=== PATIENT | male | born 1950 | race Caucasian/White ===

== ENCOUNTER → 2017-12-20 | Outpatient (CLI) | payer OTHER ==
--- NOTE | 2017-12-21 06:22 | PAP/PSG TECHNICIAN REPORT ---
[facility] [employer] Polysomnogram Report Study name: None Report date: 12/21/2017 Study date: 12/20/2017 Referring Physician: DR. LILY RENE Name: SHANTELL BAUM Interpreting Physician: Sanjiv Cunningham M.D. Date of : 1950 [employer]: Cristhian Pantoja RPSGT. Sex: Male Age: 67 StudyType: PSG Weight: Height: 67 years, Height BMI: Medications: LISINOPRIL 20 MG, METFORMIN HCL 1000 MG, RANITIDINE HCL 150 MG, SAXAGLIPTIN HCL 5 MG, SIMVASTATIN 80 MG, TAMSULOSIN HCL 0.4 MG Patient History PATIENT HAS HISTORY OF SNORING AND DAYTIME FATIGUE. HE IS HERE TODAY BECAUSE HE IS PREPARING FOR KNEE SURGERY. ESS = 5 RM 6 Parameters Monitored NPSG: E1-M2, E2-M1, Fp1-M2, Fp2-M1, F3-M2, F4-M2, F4-M1, C3-M2, C4-M2, C4-M1, O1-M2, O2-M2, O2-M1, T3-M2, T4-M1, P3-M2, P4-M1, CHIN1, CHIN2, HR, EKG, Legs, PFLOW, SNOR, FLOW, CFLOW, Tidal Volume, THOR, ABDO, SpO2, PLTH, CPRESS, ETCO2 Wave, ETCO2, pH Sleep Architecture Sleep Stages Time at Lights Off 10:15:40 PM STAGES Time (min.) TST (%) Time at Lights On 4:54:40 AM Wake 99.0 -- Total Recording Time (TRT) 399.50 min. N1 29.5 10 Total Sleep Period (TSP) 352.0 min. N2 199.0 66 Total Sleep Time (TST) 300.0min. N3 0.0 0 Awake Time 99.5 min. REM 71.5 24 Wake after Sleep Onset 60.5 min. Sleep Efficiency (SE) 75 % Sleep Onset Latency (YANDY) 38.5 min. Number of Stage 1 Shifts None Awakenings 15 Stage Changes 55 Number of REM periods 2 REM 71.5 24 REM Latency 187.0 min. NREM 228.5 76 Body Position Analysis Supine Right Left Side Prone Vertical Total Sleep Time (min.) 152.9 105.0 105.7 210.70 0.0 0.0 Total Sleep Time (%) 30% 35% 35% 70 0% N/A% Total Sleep Time REM (min.) 30.0 41.5 0.0 None 0.0 0.0 Total Sleep Time NREM (min.) 59.3 63.5 105.7 None 0.0 0.0 Intermittent Wake (min.) 63.6 11.7 23.7 None 0.0 0.0 Total Sleep Period (%) 33% None None None None None Arousals Myoclonus (PLM) * Events Count Index Events Count Index Spontaneous 18 4 Events Awake (PLMW) 106 64.2 Respiratory 36 7.2 Events Asleep w/ Arousal (PLMA) 16 3.2 PLM 14 3 Events Asleep w/o Arousal (PLMS) 114 22.8 Snoring 23 5 Total Asleep 130 26.0 Total 88 18 Total 236 35 Respiratory Analysis * CA OA MA CH H RERA Total Count 0 32 0 0 117 0 149 Index 0.0 6.4 0.0 0 23.4 0 29.8 Mean Duration 0.0 25.2 0.0 0.00 22.6 0.0 23.2 Longest Duration 0.0 50.5 0.0 0.00 0.0 0.0 50.5 Respiratory Event Summary Total Supine ~Supine Right Left Prone REM NREM Apneas Count 32 28 4 2 2 N/A 12 20 Index 6.4 19 1 1.1 1.1 N/A 10 5 Hypopneas (4% Desat) Count 117 76 41 24 17 N/A 51 66 Index 23.4 51.1 12 13.7 9.7 N/A 42.8 17.3 Apneas & All Hypopneas Count 149 104 45 26 19 N/A 63 86 Index 29.8 70 13 15 11 N/A 52.9 22.6 Respiratory Events (Roving Marker+All Hyp+RERA) Count 149 104 45 26 19 N/A 63 86 Index 29.8 70 13 14.9 10.8 N/A 52.9 22.6 Respiratory Related Arousal Count 36 104 5 0 5 N/A 12 24 Index 7.2 21 1 0 3 N/A 10 6 Snoring Analysis Supine Right Left Prone REM NREM Total Snore duration 66.0 min Snores count 577 1,340 725 N/A 778 1,864 2,642 Snore mean duration 1.5 Sec Snores index 388 766 412 N/A 652.9 489.5 528.4 TST with snoring (%) 22.0% Desaturation Event Summary: Minimum %SpO2 Event Count Mean/Min/Max Duration(sec.) Desaturation Index % Time In Bed > 90 153 26.9 / 5.8 / 60.0 27.1 87.8 86 - 90 21 25.0 / 4.5 / 51.5 31.4 10.4 81 - 85 2 6.4 / 5.8 / 7.0 23.5 1.3 76 - 80 1 7.0 / 7.0 / 7.0 43.6 0.4 71 - 75 0 N/A 0.0 0.1 66 - 70 0 N/A 0.0 0.0 61 - 65 0 N/A 0.0 0.0 56 - 60 0 N/A 0.0 0.0 51 - 55 0 N/A 0.0 0.0 < 50 0 N/A 0.0 0.0 Total REM NREM Awake <50% 0.0 min. 0.0 min. 0.0 min. 0.0 min. 51 - 60% 0.0 min. 0.0 min. 0.0 min. 0.0 min. 61 - 70% 0.0 min. 0.0 min. 0.0 min. 0.0 min. 71 - 80% 1.9 min. 1.6 min. 0.2 min. 0.1 min. 81 - 90% 45.2 min. 30.5 min. 12.2 min. 2.4 min. 91 - 100% 339.2 min. 39.4 min. 213.4 min. 86.4 min. Average 93 91 93 94 Minimum SpO2 71 71 75 71 Desaturation Event Index 24.7 52.9 23.6 7.9 # Desat. Events below 89% 62 50 7 5 Time(%) with Saturation below 89% 5.6 4.9 0.5 0.2 Time(min.) with Saturation below 89% 21.7 18.8 2.0 0.9 Time (mins) REM (mins) NREM (mins) % of TST SpO2 Below 90% 88 54 N34 9.6 SpO2 Below 88% 30 0 0 5 Heart Rate Analysis Min (bpm) Max (bpm) Average (bpm) Awake 38 214 84 NREM 65 102 85 REM 67 103 86 Overall 65 103 85 Supplemental O2 Values Minimum O2 level: None Value Start Time End Time [employer] Comments Mr. Baum slept in the right, left and supine positions. PAC's noted. Leg movements noted. No bruxism noted. Snoring was noted and scored as a 4 on a scale of 1 through 5. (0=no snoring, 5=snoring loud enough to be heard through a closed door or down the [address]) Mr. Baum awoke to use the restroom 0 times during the night. Mr. Baum stated I slept as well as I do when I am in my own bed. The final report will be interpreted and signed by a sleep physician. The completed physician report will then be placed in the patient medical record. Therapy (cm H2O) 0 TIB (min.) 399.0 TST (min.) 300.0 Sleep Onset (min.) 38.5 REM Onset From Sleep (min.) 187.0 Sleep Efficiency % 75 Wakefulness (%) 25 Wakefulness (min.) 99.5 NREM 1 (%) 10 NREM 1 (min.) 29.5 NREM 2 (%) 66 NREM 2 (min.) 199.0 NREM 3 (%) 0 NREM 3 (min.) 0.0 REM (%) 24 REM (min.) 71.5 # Arousals 88 Arousal Index 18 # Snore 2,642 Snore Index 528.4 AHI 29.8 AHI Supine 70 AHI Non-Supine 13 NREM AHI 22.6 REM AHI 52.9 RDI 29.8 # Obstructive Apnea 32 # Central Apnea 0 # Mixed Apnea 0 # Hypopneas 117 RERAs 0 Total Respiratory Events 152 Time Below SpO2 89% (min.) 20.8 Mean NREM SpO2 (%) 93 Mean REM SpO2 (%) 91 Mean Sleep SpO2 (%) 92 Min NREM SpO2 (%) 75 Min REM SpO2 (%) 71 Position Supine (min.) 152.9 Position Non-supine (min.) 210.7 LM Index Sleep 26.0 LM Index NREM 29.7 LM Index REM 14.3 Mean Heart Rate (bpm) 85 Min Heart Rate (bpm) 65
--- NOTE | 2017-12-23 10:38 | POLYSOMNOGRAPH REPORT ---
CLINICAL DATA: A 67-year-old male referred by Dr. Jose Clark with a history of snoring and fatigue. He is being evaluated prior to upcoming knee surgery. His [place] sleepiness score is 5/24. SLEEP ARCHITECTURE: Total sleep period was 352 minutes. Total sleep time was 300 minutes divided between 228.5 minutes of non-REM sleep and 71.5 minutes of REM sleep. Sleep latency was delayed at 38.5 minutes. REM latency was delayed at 187 minutes. Sleep efficiency was 75%. Wake after sleep onset was elevated at 60.5 minutes. Sleep consisted of stage N1 10%, stage N2 66%, and REM 24%. AROUSAL DATA: 88 arousals were recorded for an index of 18 per hour. PLM DATA: 130 limb movements during sleep were noted for an index of 26 per hour with arousal index of 3.2 per hour. RESPIRATORY DATA: Severe sleep apnea was documented. The AHI was 30. There were 32 obstructive apneic episodes. The longest duration of apnea was 50.5 seconds. There were 117 hypopneic episodes. The mean duration of hypopnea was 22.6 seconds. OXIMETRY DATA: Nocturnal hypoxemia was seen. Oxygen dagoberto was 71% during REM. Mean saturation was 93%. Time below 88% was 30 minutes. EKG: Heart rates ranged from 65-103 beats per minute. PACs were noted. LEAD CASHIER'S COMMENTS: The patient slept in the right, left, and supine positions. Snoring was severe, rated 4 on a scale of 1-5. IMPRESSION: Severe sleep apnea/hypopnea with an AHI of 30 with nocturnal hypoxemia. RECOMMENDATIONS: The patient may benefit from a repeat sleep study with CPAP and/or sleep medicine consultation. [facility]
== END | disposition home or self-care (01) ==
LOC: C.NEUR 20:00
PROVIDERS: ATTEND Family Medicine
DX: G47.33 Obstructive sleep apnea (adult) (pediatric) (principal)